=== PATIENT | male | born 1990 | race Caucasian/White ===

== ENCOUNTER 2017-12-03 08:17 | Emergency (ER) | payer SELFPAY ==
[~2017-12-03] VITALS: Ht 170.2 cm; Wt 63.5 kg
[2017-12-03 08:24] VITALS: BP_SYST 123
[2017-12-03 09:25] VITALS: BP_SYST 112
== END 2017-12-03 09:25 | disposition home or self-care (01) ==
LOC: SED 08:17
DX: L03.032 Cellulitis of left toe (principal)
CPT/HCPCS: 99284

== ENCOUNTER 2017-12-06 11:47 | Emergency (ER) | payer MEDICAID ==
[~2017-12-06] VITALS: Ht 170.2 cm; Wt 63.5 kg
[2017-12-06 12:07] VITALS: BP_SYST 132
[2017-12-06] MEDS ORDERED: cefTRIAXone 1 GM VIAL IM ONE (12:15)
[2017-12-06] MEDS ORDERED: DIPH-TET-PERTUS Vaccine 0.5 ML VIAL (ADACEL) I.M. ONE (12:15)
[2017-12-06] MEDS ORDERED: LIDOCAINE 1% 10 MG/ML, 20 ML MDV INJ ONE (12:15)
[2017-12-06 12:57] VITALS: BP_SYST 127
== END 2017-12-06 12:57 | disposition home or self-care (01) ==
LOC: SED 11:47
DX: L03.116 Cellulitis of left lower limb (principal)
CPT/HCPCS: 90471; 90715; 96372; 99284; J0696; J2001